=== PATIENT | female | born 2000 | race American Indian/Alaskan Native ===

== ENCOUNTER 2019-12-19 09:08 | Inpatient (IN) | payer MEDICAID ==
[2019-12-19] MEDS ORDERED: BUTORPHANOL 2 MG/1 ML INJ IV PRN (12:46)
[2019-12-19] MEDS ORDERED: LIDOCAINE (2%) 20 MG/1 ML VIAL 20 ML MDV INFILTRATI ONE ×2 (12:46→19:50)
[2019-12-19] MEDS ORDERED: PROMETHAZINE 25 MG TAB PO PRN (12:46)
[2019-12-19] MEDS ORDERED: TERBUTALINE 1 MG/1 ML INJ IVP PRN (12:46)
[2019-12-19] MEDS ORDERED: ePHEDrine SULFATE 50 MG/1 ML INJ IV PRN ×2 (12:46→16:26)
[2019-12-19] MEDS ORDERED: MINERAL OIL 30 ML ORAL LIQD PO PRN (12:46)
[2019-12-19] MEDS ORDERED: TERBUTALINE 1 MG/1 ML INJ SUB-Q PRN (12:46)
[2019-12-19] MEDS ORDERED: OXYTOCIN DRIP 30 UNITS/500 ML BAG IV SCH ×2 (13:00)
[2019-12-19 13:11] LABS: Hematocrit 33.7 % (30.3-42.9); Hemoglobin 10.9 gm/dl (10.1-14.3); Mean Corpuscular HGB Conc 32 % (30-34); Mean Corpuscular Volume 74 fl (79-97); Platelet Count 219 K/mm3 (140-440); Red Blood Count 4.56 M/mm3 (3.65-5.03); Red Cell Distribution Width 16.1 % (13.2-15.2)
[2019-12-19] MEDS: LACTATED RINGERS 1,000 ML IV SCH ×4 (13:37→17:18)
[2019-12-19] MEDS ORDERED: ONDANSETRON 4 MG/2 ML INJ IV PRN (13:58)
[2019-12-19] MEDS ORDERED: AMPICILLIN/NS 2 GM/100 ML 2 GM/100 ML BAG IV ONE (14:00)
[2019-12-19] MEDS ORDERED: DEXMEDETOMIDINE 200 MCG/2 ML VIAL IV ONE (16:04)
[2019-12-19] MEDS ORDERED: NALOXONE 2 MG/2 ML INJ IV PRN (16:26)
--- NOTE | 2019-12-19 16:26 | Anesthesia Consultation ---
Anesthesia Consult and Med Hx Date of service: 12/19/19 - Airway Anesthetic Teeth Evaluation: Good ROM Head & Neck: Adequate Mental/Hyoid Distance: Adequate Mallampati Class: Class II Intubation Access Assessment: Probably Good - Pulmonary Exam CTA: Yes - Cardiac Exam Cardiac Exam: RRR - Pre-Operative Health Status ASA Pre-Surgery Classification: ASA2 Proposed Anesthetic Plan: Epidural - Pulmonary Hx Asthma: No - Cardiovascular System Hx Hypertension: No - Central Nervous System Hx Seizures: No Hx Psychiatric Problems: No - Endocrine Hx Renal Disease: No Hx Hypothyroidism: No Hx Hyperthyroidism: No - Hematic Hx Sickle Cell Disease: No - Other Systems Hx Alcohol Use: No
--- NOTE | 2019-12-19 16:28 | Progress Note ---
Labor Epidural - Labor Epidural Start Time: 16:08 Stop Time: 16:20 Performed by:: JEAN ALANIS Procedure: Patient is requesting epidural for labor pain. H&P, and labs reviewed. Procedure explained, questions answered, consent obtained. Patient in sitting position with blood pressure cuff and pulse ox on and working. Timeout performed immediately before start of procedure. Sterile betadine prep/drape. 3 mL 1% lidocaine skin wheal at L[3]-L[4]. 18-gauge Touhy epidural needle advanced to [id number] with saline at [7] cm. 27-gauge spinal needle advanced until clear, free-flowing CSF. Intrathecal dexmedetomidine [10] mcg administered and needle removed. Epidural catheter advanced to [12] cm, negative aspiration for blood and csf, negative test dose 3 ml 1.5% lidocaine with epinephrine. Sterile steri-strips and tegaderm applied, followed by tape reinforcement. Patient tolerated procedure well.
[2019-12-19] MEDS ORDERED: fentaNYL-BUPIV 2 MCG/ML-0.125% 200 MCG/100 ML BAG EPIDURAL SCH (17:00)
[2019-12-19] MEDS: AMPICILLIN/NS 1 GM/50 ML 1 GM/50 ML BAG IV SCH ×2 (17:18→22:05)
--- NOTE | 2019-12-19 22:21 | History and Physical Report ---
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 Pt has had an uncomplicated course. Her labs have been negative. She is GBS positive. Past History Past Medical History: no pertinent history Past Surgical History: no surgical history Social history: single - Obstetrical History Expected Date of Delivery: 12/21/19 Actual Gestation: 39 Week(s) 5 Day(s) : 2 Number of Living Children: 0 Medications and Allergies Allergies Allergy/AdvReac Type Severity Reaction Status Date / Time No Known Allergies Allergy Unverified 12/19/19 10:05 Home Medications Medication Instructions Recorded Confirmed Last Taken Type No Known Home Medications [No 12/19/19 12/19/19 Unknown History Reported Home Medications] Active Meds: Active Medications Butorphanol Tartrate (Stadol) 2 mg IV Q2H PRN PRN Reason: Pain , Severe (7-10) Last Admin: 12/19/19 14:15 Dose: 2 mg Documented by: Ephedrine Sulfate (Ephedrine Sulfate) 10 mg IV Q2M PRN PRN Reason: Hypotension Ephedrine Sulfate (Ephedrine Sulfate) 10 mg IV Q2M PRN PRN Reason: Hypotension Oxytocin/Sodium Chloride (Pitocin/Ns 20 Unit/1000ml Drip) 20 units in 1,000 mls @ 125 mls/hr IV DIRECT TIMMY Oxytocin/Sodium Chloride (Pitocin/Ns 30 Unit/500ml) 30 units in 500 mls @ 1 mls/hr IV TITR TIMMY; Protocol Last Titration: 12/19/19 19:15 Dose: 0 milliunits/min, 0 mls/hr Documented by: Lactated Ringer's (Lactated Ringers) 1,000 mls @ 125 mls/hr IV DIRECT TIMMY Last Admin: 12/19/19 17:18 Dose: 125 mls/hr Documented by: Ampicillin Sodium (Ampicillin/Ns 1 Gm/50 Ml) 1 gm in 50 mls @ 100 mls/hr IV Q4HR TIMMY; Protocol Last Admin: 12/19/19 22:05 Dose: 100 mls/hr Documented by: Fentanyl/Bupivacaine/Sodium Chlor (Fentanyl-Bupiv 2 Mcg/Ml-0.125%) 200 mcg in 100 mls @ 12 mls/hr EPIDURAL TITR TIMMY; Protocol Last Admin: 12/19/19 17:13 Dose: 12 mls/hr Documented by: Mineral Oil (Mineral Oil) 30 ml PO QHS PRN PRN Reason: Constipation Naloxone HCl (Naloxone) 0.2 mg IV Q5M PRN PRN Reason: Respiratory sedation Ondansetron HCl (Zofran) 4 mg IV Q8H PRN PRN Reason: Nausea And Vomiting Last Admin: 12/19/19 14:15 Dose: 4 mg Documented by: Promethazine HCl (Phenergan) 25 mg PO Q6H PRN PRN Reason: Nausea And Vomiting Terbutaline Sulfate (Brethine) 0.25 mg SUB-Q ONCE PRN PRN Reason: Hyperstimulation/Hypertonicity Terbutaline Sulfate (Brethine) 0.25 mg IVP ONCE PRN PRN Reason: Hyperstimulation/Hypertonicity Review of Systems All systems: negative Constitutional: malaise Genitourinary: contractions - Vital Signs Vital signs: Vital Signs Pulse Pulse Ox 60 100 12/19/19 09:40 12/19/19 09:40 Temp Pulse Resp BP Pulse Ox 98.2 F 51 L 16 103/60 100 12/19/19 19:15 12/19/19 22:16 12/19/19 19:15 12/19/19 22:16 12/19/19 22:11 - Physical Exam Breasts: Positive: deferred Cardiovascular: Regular rate, Normal S1, Normal S2 Lungs: Positive: Clear to auscultation, Normal air movement Abdomen: Positive: normal appearance, soft, normal bowel sounds. Negative: distention, tenderness Genitourinary (Female): Positive: normal perenium Vulva: both: normal Vagina: Positive: normal moisture. Negative: discharge Cervix: Negative: lesion, discharge Uterus: Positive: normal size, normal contour Adnexa: both: normal Anus/Rectum: Positive: normal perianal skin, heme negative. Negative: rectal mass, hemorrhoids Extremities: Deep Tendon Reflex Grade: Normal +2 - Obstetrical Cervical Dilatation: 4 Cervical Effacement Percentage: 70 station: -2 Uterine Contraction Pattern: Regular Uterine Tone Measurement Phase: Contraction Uterine Contraction Intensity: Moderate Results Result Diagrams: 12/19/19 12:40 Abnormal lab results 12/19/19 Range/Units 12:40 MCV 74 L (79-97) fl MCH 24 L (28-32) pg RDW 16.1 H (13.2-15.2) % All other labs normal. Assessment and Plan IUP at 39.5 weeks in active labor. Admit for management. AROM. Pt may have epidural. Will treat for GBS prophylaxis. Anticipate .
[2019-12-20] MEDS: OXYTOCIN 20 UNIT/1000ML DRIP 20 UNITS/1,000 ML BAG IV SCH ×2 (00:12→00:36)
[2019-12-20] MEDS ORDERED: OXYTOCIN 10 UNIT/1 ML INJ ONE (00:15)
--- NOTE | 2019-12-20 00:32 | Procedure Note ---
OB Delivery Note - Delivery Date of Delivery: 12/20/19 Surgeon: CECI HUANG Estimated blood loss: 300cc - Vaginal Delivery presentation: vertex Delivery position: OA Intrapartum events: meconium Delivery induction: none Delivery augmentation: rupture of membranes, pitocin Delivery monitor: external FHT, external uterine Route of delivery: Indicators for instrumentation: nonreassuring FHR tracing Delivery placenta: spontaneous Delivery cord: 3 umbilical vessels Episiotomy: none Delivery laceration: 2nd degree Delivery repair: vicryl Anesthesia: epidural Delivery comments: Viable male delivered over intact perineum at 0009 with no nuchal cord. Cord clamped and cut and infant handed to waiting NICU personnel. Weight 6 pounds 12 ounces. Apgars 8,9. Placenta delivered spontaneously and intact with 3vc. Pt tolerated procedure well. - Infant A at 1 minute: 8 at 5 minutes: 9 Gender: Male
[2019-12-20] MEDS ORDERED: OXYTOCIN 10 UNIT/1 ML INJ IM ONE (00:37)
[2019-12-20] MEDS ORDERED: ACETAMINOPHEN 325 MG TAB PO PRN (02:38)
[2019-12-20] MEDS ORDERED: MAGNESIUM HYDROXIDE (MOM) ORAL LIQD UDC PO PRN (02:38)
[2019-12-20] MEDS ORDERED: LANOLIN/ZINC/DIMETHICONE (LANSINOH) 7 GM TP PRN (02:38)
[2019-12-20] MEDS ORDERED: diphenhydrAMINE 25 MG CAP PO PRN (02:38)
[2019-12-20] MEDS ORDERED: ONDANSETRON 4 MG/2 ML INJ IV PRN (02:38)
[2019-12-20] MEDS ORDERED: PROMETHAZINE 25 MG RECT SUPP PR PRN (02:38)
[2019-12-20] MEDS ORDERED: HYDROcodone/ACETAMINOPHEN 5-325 MG TAB PO PRN (02:38)
[2019-12-20] MEDS ORDERED: PROMETHAZINE 25 MG TAB PO PRN (02:38)
[2019-12-20] MEDS: WITCH HAZEL/ GLYCERIN PAD TP PRN (02:58)
[2019-12-20] MEDS: IBUPROFEN 600 MG TAB PO SCH ×4 (06:21→23:38)
[2019-12-20] MEDS: DOCUSATE SODIUM 100 MG CAP PO SCH (08:26)
[2019-12-20] MEDS: PRENATAL VIT27-FE FUMARATE-FOLIC ACID VIT TAB PO SCH (08:26)
[2019-12-20 12:51] LABS: Hematocrit 29.7 % (30.3-42.9); Hemoglobin 9.4 gm/dl (10.1-14.3)
--- NOTE | 2019-12-20 20:51 | Post Anesthesia Evaluation ---
- Post Anesthesia Evaluation Patient Participated: Yes Airway Patent: Yes Stable Respiratory Function: Yes Nausea/Vomiting: No Temp > 96.8F: Yes Pain Manageable: Yes Adequeate Hydration: Yes Anesthesia Complications: No Block Receding Appropriately: Yes
[2019-12-21] MEDS: IBUPROFEN 600 MG TAB PO SCH (06:12)
[2019-12-21] MEDS: WITCH HAZEL/ GLYCERIN PAD TP PRN ×2 (06:23→14:25)
[2019-12-21] MEDS: DOCUSATE SODIUM 100 MG CAP PO SCH (09:50)
[2019-12-21] MEDS: PRENATAL VIT27-FE FUMARATE-FOLIC ACID VIT TAB PO SCH (09:50)
--- NOTE | 2019-12-21 10:39 | Progress Note ---
Assessment and Plan PPD 1 s/p . Doing well. Plan for discharge on today. 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 Pt has had an uncomplicated course. Her labs have been negative. She is GBS positive. Patient reports: appetite normal, voiding normally, pain well controlled, ambul ating normally : doing well Objective - Vital Signs Latest vital signs: Vital Signs Temp Pulse Resp BP Pulse Ox 12/21/19 09:33 98.5 F 57 L 20 132/83 98 12/20/19 17:33 98.3 F 61 18 106/57 96 Intake and Output 12/20/19 12/21/19 12/21/19 22:59 06:59 14:59 Intake Total 360 120 Output Total 400 Balance -400 360 120 Intake: Oral 360 120 Output: Urine 400 Void 400 Other: Total, Intake Amount 120 120 Total, Output Amount 400 # Voids Void 1 1 - Exam Breasts: Present: deferred Cardiovascular: Present: Regular rate, Normal S1, Normal S2 Lungs: Present: Clear to auscultation, Normal air movement Abdomen: Present: normal appearance, soft, normal bowel sounds Uterus: Present: normal, firm Extremities: Present: normal - Labs Labs: Abnormal lab results 12/20/19 Range/Units 12:31 Hgb 9.4 L (10.1-14.3) gm/dl Hct 29.7 L (30.3-42.9) %
[2019-12-21] MEDS ORDERED: BENZOCAINE/MENTHOL 20/0.5% TOP SPRAY 56 GM TP PRN (10:51)
--- NOTE | 2019-12-21 15:37 | Discharge Summary ---
Providers - Providers Date of Admission: 12/19/19 12:46 Date of discharge: 12/21/19 Attending physician: CECI HUANG Primary care physician: [facility] Hospitalization Reason for admission: active labor Delivery: Episiotomy: none Laceration: 2nd degree Other procedures: none complications: none Discharge diagnosis: IUP at term delivered baby: male Hospital course: unremarkable Condition at discharge: Good Disposition: DC-01 TO HOME OR SELFCARE Plan - Discharge Medications Prescriptions: Ibuprofen [Motrin] 800 mg PO Q8HR PRN #40 tablet PRN Reason: Pain, Mild (1-3) HYDROcodone/APAP 5-325 [[place] 5/325] 1 each PO Q6HR PRN #20 tablet PRN Reason: Pain - Provider Discharge Summary Activity: routine, no sex for 6 weeks, no heavy lifting 4 weeks, no strenuous exercise Diet: routine Instructions: routine Additional instructions: [] Smoking cessation referral if applicable(refer to patient education folder for contact #) [] Refer to [facility] Booklet Call your doctor immediately for: * Fever > 100.5 * Heavy vaginal bleeding ( >1 pad per hour) * Severe persistent headache * Shortness of breath * Reddened, hot, painful area to leg or breast * Drainage or odor from incision. * Keep incision clean and dry at all times and follow doctor's instructions regarding bathing/showering - Follow up plan Follow up: PRIMARY CARE, [Primary Care Provider] - 6 Weeks Forms: [facility] Discharge Summary
[2019-12-21 16:34] VITALS: BP 120/59
== END 2019-12-21 16:30 | disposition home or self-care (01) | DRG 775 ==
LOC: TRG 09:08 → APU 09:09 → TRG 12:46 → LD 12:46 → OB 12-20 02:35
PROVIDERS: ADMIT Obstetrics & Gynecology; ATTEND Obstetrics & Gynecology
PROC: 10E0XZZ Delivery of Products of Conception, External Approach (ICD-10-PCS; principal; 2019-12-20)
PROC: 0KQM0ZZ Repair Perineum Muscle, Open Approach (ICD-10-PCS; 2019-12-20)
PROC: 3E0R3BZ Introduction of Anesthetic Agent into Spinal Canal, Percutaneous Approach (ICD-10-PCS; 2019-12-20)
PROC: 3E0R33Z Introduction of Anti-inflammatory into Spinal Canal, Percutaneous Approach (ICD-10-PCS; 2019-12-20)
DX: O99.824 Streptococcus B carrier state complicating childbirth (principal); Z3A.39 39 weeks gestation of pregnancy; Z37.0 Single live birth; O70.1 Second degree perineal laceration during delivery
CPT/HCPCS: 36415; 85014; 85018; 85027; 86592; 86850; 86900; 86901; G0378; J0290; J0595; J2405; J2590; J3490; J7120